=== PATIENT | female | born 1990 | race Caucasian/White ===

== ENCOUNTER 2018-07-07 09:34 | Emergency (ER) | payer OTHER ==
[2018-07-07] MEDS: KETOROLAC 30 MG INJ IM (11:00)
== END 2018-07-07 11:38 | disposition home or self-care (01) ==
LOC: FTE 09:34
DX: S83.91XA Sprain of unspecified site of right knee, initial encounter (principal); X50.1XXA Overexertion from prolonged static or awkward postures, initial encounter; Y92.322 Soccer field as the place of occurrence of the external cause
CPT/HCPCS: 29505; 73562; 81025; 96372; 99284-25